=== PATIENT | male | born 1940 | race Caucasian/White ===

== ENCOUNTER 2017-02-27 23:17 | Observation (INO) | payer OTHER ==
[~2017-02-27] VITALS: Ht 175.3 cm; Wt 84.2 kg
[2017-02-27 23:41] LABS: HEMATOCRIT 36.4 % (38.0-50.0); HEMOGLOBIN 12.9 G/DL (12.5-16.6); MCH 31.5 PG (29.0-34.0); MCHC 35.4 G/DL (30.0-36.0); PLATELET COUNT 393 K/uL (156-360); RBC DIS.WIDTH-CV 11.7 % (11.8-14.6); RBC DIS.WIDTH-SD 37.4 % (39-53); RED BLOOD COUNT 4.09 M/uL (4.00-5.50); WHITE BLOOD COUNT 6.8 K/uL (4.1-10.2)
[2017-02-27 23:50] LABS: PTT 30.3 SEC (25-37)
[2017-02-27 23:56] LABS: CHLORIDE 99 mEq/L (99-109); POTASSIUM 4.3 mEq/L (3.7-5.4); SODIUM 136 mEq/L (136-147)
[2017-02-27 23:57] LABS: GLUCOSE 103 mg/dL (70-99)
[2017-02-28 00:01] LABS: GFR ESTIMATE (CALCULATED) > 59 mL/min/ (58.99-99999)
[2017-02-28 00:02] LABS: TROP-I INTERPRETATION NEGATIVE; TROPONIN-I < 0.01 ng/mL (0.0-0.30); UREA NITROGEN (BUN) 17 mg/dL (9-23)
[2017-02-28] MEDS ORDERED: TRAZODONE HCL50 MG PO (01:25)
[2017-02-28] MEDS ORDERED: ZYPREXA ZYDIS5 MG PO ×2 (01:26)
[2017-02-28] MEDS ORDERED: LISINOPRIL20 MG PO ×2 (01:27→13:08)
[2017-02-28 03:02] VITALS: BP 184/68
[2017-02-28 03:42] LABS: TROP-I INTERPRETATION NEGATIVE; TROPONIN-I < 0.01 ng/mL (0.0-0.30)
[2017-02-28 03:56] VITALS: BP 115/63
[2017-02-28 07:12] VITALS: BP 152/75
[2017-02-28 09:51] LABS: TROP-I INTERPRETATION NEGATIVE; TROPONIN-I < 0.01 ng/mL (0.0-0.30)
[2017-02-28 11:35] VITALS: BP 142/80
== END 2017-02-28 16:18 ==
LOC: EME 23:17 → EDOF 02-28 01:26 → 5WEST 02-28 01:26 → ENRESERV 02-28 01:31 → 5WEST 02-28 02:49 → ENPENDDIS 02-28 16:01 → 5WEST 02-28 16:18
PROVIDERS: Emergency Medicine; Hospitalist
DX: R07.9 Chest pain, unspecified (principal); I10 Essential (primary) hypertension; J43.9 Emphysema, unspecified; F20.9 Schizophrenia, unspecified
CPT/HCPCS: 71020; 71275; 80048; 81003; 84484; 85027; 85379; 85610; 85730; 93005; 93306; 99281; 99285; G0378; J0360